=== PATIENT | male | born 1955 | race Caucasian/White ===

== ENCOUNTER → 2017-08-11 | Outpatient (CLI) | payer OTHER ==
[~2017-08-11] MED LIST: ACETAMINOPHEN325 M1 PO; ADULT LOW DOSE81 MG PO; ALLERGY RELIEF10 M3 PO; ANTACID SUSPEN355 M1 PO; ASPIRIN81 M2 PO; BETADINE30 ML; BISAC-EVAC10 MG RECTAL; BOUDREAUXS10 GM; COUMADIN 3 MG TA3 MG PO; FAMOTIDINE 10 M10 MG PO; LOPERAMIDE 2 MG2 M1 PO; METOCLOPRAMIDE 55 MG PO; MIRALAX255 GM PO; MUCINEX TA600 MG/TA2 PO; OXECTA5 MG PO; REMERON15 MG PO; REMERON30 MG PO; SENNA-S TABLET1 EACH PO; SILVADENE20 GM; TRAZODONE 150150 M1 PO; TUSSIN DM CLEA PO; Trazodone PO
== END ==
LOC: HYPER 06:57
DX: I87.2 Venous insufficiency (chronic) (peripheral) (principal); L97.821 Non-pressure chronic ulcer of other part of left lower leg limited to breakdown of skin; G82.20 Paraplegia, unspecified; R60.0 Localized edema; G89.4 Chronic pain syndrome; I48.91 Unspecified atrial fibrillation; I10 Essential (primary) hypertension; F17.200 Nicotine dependence, unspecified, uncomplicated; Z72.89 Other problems related to lifestyle

== ENCOUNTER → 2017-09-01 | Outpatient (CLI) | payer OTHER | LOC: HYPER 07:08 | DX: I87.2 Venous insufficiency (chronic) (peripheral) (principal); L97.822 Non-pressure chronic ulcer of other part of left lower leg with fat layer exposed; R21 Rash and other nonspecific skin eruption; G82.20 Paraplegia, unspecified; R60.0 Localized edema; G89.4 Chronic pain syndrome; I48.91 Unspecified atrial fibrillation; I10 Essential (primary) hypertension; F17.200 Nicotine dependence, unspecified, uncomplicated; Z72.89 Other problems related to lifestyle ==

== ENCOUNTER → 2017-09-15 | Outpatient (CLI) | payer OTHER | LOC: HYPER 07:07 | DX: T81.31XD Disruption of external operation (surgical) wound, not elsewhere classified, subsequent encounter (principal); I87.312 Chronic venous hypertension (idiopathic) with ulcer of left lower extremity; L97.821 Non-pressure chronic ulcer of other part of left lower leg limited to breakdown of skin; G82.20 Paraplegia, unspecified; R60.0 Localized edema; G89.4 Chronic pain syndrome; I48.91 Unspecified atrial fibrillation; F17.200 Nicotine dependence, unspecified, uncomplicated; Y83.8 Other surgical procedures as the cause of abnormal reaction of the patient, or of later complication, without mention of misadventure at the time of the procedure ==

== ENCOUNTER → 2017-10-17 | Outpatient (CLI) | payer OTHER | LOC: HYPER 07:05 | DX: L97.821 Non-pressure chronic ulcer of other part of left lower leg limited to breakdown of skin (principal); I87.2 Venous insufficiency (chronic) (peripheral); G82.20 Paraplegia, unspecified; R60.0 Localized edema; G89.4 Chronic pain syndrome; I48.91 Unspecified atrial fibrillation; I10 Essential (primary) hypertension; L84 Corns and callosities; F17.200 Nicotine dependence, unspecified, uncomplicated ==

== ENCOUNTER → 2018-06-27 | Outpatient (CLI) | payer OTHER | LOC: HYPER 06:55 | DX: L89.613 Pressure ulcer of right heel, stage 3 (principal); G82.20 Paraplegia, unspecified; G89.4 Chronic pain syndrome; G90.09 Other idiopathic peripheral autonomic neuropathy; G47.30 Sleep apnea, unspecified; I87.2 Venous insufficiency (chronic) (peripheral); I12.9 Hypertensive chronic kidney disease with stage 1 through stage 4 chronic kidney disease, or unspecified chronic kidney disease; N18.9 Chronic kidney disease, unspecified; I48.91 Unspecified atrial fibrillation; K21.9 Gastro-esophageal reflux disease without esophagitis; F17.200 Nicotine dependence, unspecified, uncomplicated; Z79.01 Long term (current) use of anticoagulants ==

== ENCOUNTER → 2018-10-16 | Outpatient (CLI) | payer OTHER | LOC: HYPER 07-25 09:15 | DX: I70.233 Atherosclerosis of native arteries of right leg with ulceration of ankle (principal); L97.312 Non-pressure chronic ulcer of right ankle with fat layer exposed; L89.613 Pressure ulcer of right heel, stage 3; S90.414A Abrasion, right lesser toe(s), initial encounter; R60.0 Localized edema; G82.20 Paraplegia, unspecified; G89.4 Chronic pain syndrome; G47.30 Sleep apnea, unspecified; G90.09 Other idiopathic peripheral autonomic neuropathy; I87.2 Venous insufficiency (chronic) (peripheral); I12.9 Hypertensive chronic kidney disease with stage 1 through stage 4 chronic kidney disease, or unspecified chronic kidney disease; N18.9 Chronic kidney disease, unspecified; I48.91 Unspecified atrial fibrillation; K21.9 Gastro-esophageal reflux disease without esophagitis; F17.200 Nicotine dependence, unspecified, uncomplicated; Z79.01 Long term (current) use of anticoagulants; X58.XXXA Exposure to other specified factors, initial encounter; Y93.89 Activity, other specified; Y92.89 Other specified places as the place of occurrence of the external cause; Y99.8 Other external cause status ==

== ENCOUNTER → 2018-11-09 | Outpatient (CLI) | payer OTHER | LOC: HYPER 06:48 | DX: I70.233 Atherosclerosis of native arteries of right leg with ulceration of ankle (principal); L97.312 Non-pressure chronic ulcer of right ankle with fat layer exposed; L89.613 Pressure ulcer of right heel, stage 3; G89.4 Chronic pain syndrome; G82.20 Paraplegia, unspecified; G62.9 Polyneuropathy, unspecified; G47.30 Sleep apnea, unspecified; G90.09 Other idiopathic peripheral autonomic neuropathy; I12.9 Hypertensive chronic kidney disease with stage 1 through stage 4 chronic kidney disease, or unspecified chronic kidney disease; N18.9 Chronic kidney disease, unspecified; I73.89 Other specified peripheral vascular diseases; I87.2 Venous insufficiency (chronic) (peripheral); I48.91 Unspecified atrial fibrillation; I10 Essential (primary) hypertension; R60.0 Localized edema; F17.200 Nicotine dependence, unspecified, uncomplicated; Z79.01 Long term (current) use of anticoagulants; K21.9 Gastro-esophageal reflux disease without esophagitis ==

== ENCOUNTER → 2018-11-23 | Outpatient (CLI) | payer OTHER | LOC: HYPER 06:52 | DX: I70.233 Atherosclerosis of native arteries of right leg with ulceration of ankle (principal); L97.312 Non-pressure chronic ulcer of right ankle with fat layer exposed; L89.610 Pressure ulcer of right heel, unstageable; I12.9 Hypertensive chronic kidney disease with stage 1 through stage 4 chronic kidney disease, or unspecified chronic kidney disease; N18.9 Chronic kidney disease, unspecified; G82.20 Paraplegia, unspecified; I87.2 Venous insufficiency (chronic) (peripheral); G89.4 Chronic pain syndrome; R60.0 Localized edema; G90.09 Other idiopathic peripheral autonomic neuropathy; I48.91 Unspecified atrial fibrillation; G47.30 Sleep apnea, unspecified; F17.200 Nicotine dependence, unspecified, uncomplicated; Z79.01 Long term (current) use of anticoagulants ==

== ENCOUNTER → 2018-12-07 | Outpatient (CLI) | payer OTHER | LOC: HYPER 06:46 | DX: I70.233 Atherosclerosis of native arteries of right leg with ulceration of ankle (principal); L97.312 Non-pressure chronic ulcer of right ankle with fat layer exposed; L89.613 Pressure ulcer of right heel, stage 3; L97.411 Non-pressure chronic ulcer of right heel and midfoot limited to breakdown of skin; I73.89 Other specified peripheral vascular diseases; I12.9 Hypertensive chronic kidney disease with stage 1 through stage 4 chronic kidney disease, or unspecified chronic kidney disease; N18.9 Chronic kidney disease, unspecified; I87.2 Venous insufficiency (chronic) (peripheral); I48.91 Unspecified atrial fibrillation; G82.20 Paraplegia, unspecified; G89.4 Chronic pain syndrome; G90.09 Other idiopathic peripheral autonomic neuropathy; R60.0 Localized edema; G62.9 Polyneuropathy, unspecified; G47.30 Sleep apnea, unspecified; K21.9 Gastro-esophageal reflux disease without esophagitis; F17.200 Nicotine dependence, unspecified, uncomplicated; Z79.01 Long term (current) use of anticoagulants ==

== ENCOUNTER → 2018-12-21 | Outpatient (CLI) | payer OTHER | LOC: HYPER 06:31 | DX: L97.312 Non-pressure chronic ulcer of right ankle with fat layer exposed (principal); L89.613 Pressure ulcer of right heel, stage 3; I70.242 Atherosclerosis of native arteries of left leg with ulceration of calf; L97.221 Non-pressure chronic ulcer of left calf limited to breakdown of skin; I70.233 Atherosclerosis of native arteries of right leg with ulceration of ankle; L97.311 Non-pressure chronic ulcer of right ankle limited to breakdown of skin; S90.414D Abrasion, right lesser toe(s), subsequent encounter; I12.9 Hypertensive chronic kidney disease with stage 1 through stage 4 chronic kidney disease, or unspecified chronic kidney disease; N18.9 Chronic kidney disease, unspecified; I87.2 Venous insufficiency (chronic) (peripheral); I48.91 Unspecified atrial fibrillation; D64.9 Anemia, unspecified; G89.4 Chronic pain syndrome; G90.09 Other idiopathic peripheral autonomic neuropathy; G82.20 Paraplegia, unspecified; G47.30 Sleep apnea, unspecified; R60.0 Localized edema; F17.200 Nicotine dependence, unspecified, uncomplicated; Z79.01 Long term (current) use of anticoagulants; X58.XXXD Exposure to other specified factors, subsequent encounter ==

== ENCOUNTER → 2019-01-11 | Outpatient (CLI) | payer OTHER | LOC: HYPER 06:54 | DX: I70.233 Atherosclerosis of native arteries of right leg with ulceration of ankle (principal); L97.312 Non-pressure chronic ulcer of right ankle with fat layer exposed; I70.242 Atherosclerosis of native arteries of left leg with ulceration of calf; L97.221 Non-pressure chronic ulcer of left calf limited to breakdown of skin; L89.613 Pressure ulcer of right heel, stage 3; I73.89 Other specified peripheral vascular diseases; I87.2 Venous insufficiency (chronic) (peripheral); I12.9 Hypertensive chronic kidney disease with stage 1 through stage 4 chronic kidney disease, or unspecified chronic kidney disease; N18.9 Chronic kidney disease, unspecified; I48.91 Unspecified atrial fibrillation; G82.20 Paraplegia, unspecified; G62.9 Polyneuropathy, unspecified; G47.30 Sleep apnea, unspecified; G89.4 Chronic pain syndrome; G90.09 Other idiopathic peripheral autonomic neuropathy; R60.0 Localized edema; K21.9 Gastro-esophageal reflux disease without esophagitis; F17.200 Nicotine dependence, unspecified, uncomplicated; Z79.01 Long term (current) use of anticoagulants ==

== ENCOUNTER → 2019-02-01 | Outpatient (CLI) | payer OTHER | LOC: HYPER 06:56 | DX: I70.233 Atherosclerosis of native arteries of right leg with ulceration of ankle (principal); L97.312 Non-pressure chronic ulcer of right ankle with fat layer exposed; I70.242 Atherosclerosis of native arteries of left leg with ulceration of calf; L97.221 Non-pressure chronic ulcer of left calf limited to breakdown of skin; L89.613 Pressure ulcer of right heel, stage 3; G82.20 Paraplegia, unspecified; G90.09 Other idiopathic peripheral autonomic neuropathy; G89.4 Chronic pain syndrome; G47.30 Sleep apnea, unspecified; I87.2 Venous insufficiency (chronic) (peripheral); I12.9 Hypertensive chronic kidney disease with stage 1 through stage 4 chronic kidney disease, or unspecified chronic kidney disease; N18.9 Chronic kidney disease, unspecified; I48.91 Unspecified atrial fibrillation; R60.0 Localized edema; K21.9 Gastro-esophageal reflux disease without esophagitis; F17.200 Nicotine dependence, unspecified, uncomplicated; Z79.01 Long term (current) use of anticoagulants ==

== ENCOUNTER → 2019-02-22 | Outpatient (CLI) | payer OTHER | LOC: HYPER 06:45 | DX: L89.613 Pressure ulcer of right heel, stage 3 (principal); I70.233 Atherosclerosis of native arteries of right leg with ulceration of ankle; L97.312 Non-pressure chronic ulcer of right ankle with fat layer exposed; I70.232 Atherosclerosis of native arteries of right leg with ulceration of calf; L97.211 Non-pressure chronic ulcer of right calf limited to breakdown of skin; I73.89 Other specified peripheral vascular diseases; I12.9 Hypertensive chronic kidney disease with stage 1 through stage 4 chronic kidney disease, or unspecified chronic kidney disease; N18.9 Chronic kidney disease, unspecified; I48.91 Unspecified atrial fibrillation; I87.2 Venous insufficiency (chronic) (peripheral); G82.20 Paraplegia, unspecified; G89.4 Chronic pain syndrome; G90.09 Other idiopathic peripheral autonomic neuropathy; G47.30 Sleep apnea, unspecified; R60.0 Localized edema; F17.200 Nicotine dependence, unspecified, uncomplicated; Z79.01 Long term (current) use of anticoagulants ==

== ENCOUNTER → 2019-03-01 | Outpatient (CLI) | payer OTHER | LOC: MRI 10:09 | DX: L03.115 Cellulitis of right lower limb (principal); M77.51 Other enthesopathy of right foot and ankle; R60.0 Localized edema ==

== ENCOUNTER → 2019-03-12 | Outpatient (CLI) | payer OTHER | LOC: HYPER 07:44 | DX: I70.233 Atherosclerosis of native arteries of right leg with ulceration of ankle (principal); L89.613 Pressure ulcer of right heel, stage 3; L97.312 Non-pressure chronic ulcer of right ankle with fat layer exposed; I70.242 Atherosclerosis of native arteries of left leg with ulceration of calf; L97.222 Non-pressure chronic ulcer of left calf with fat layer exposed; S90.414A Abrasion, right lesser toe(s), initial encounter; G89.4 Chronic pain syndrome; G47.30 Sleep apnea, unspecified; G82.20 Paraplegia, unspecified; I87.2 Venous insufficiency (chronic) (peripheral); I48.91 Unspecified atrial fibrillation; R60.0 Localized edema; I12.9 Hypertensive chronic kidney disease with stage 1 through stage 4 chronic kidney disease, or unspecified chronic kidney disease; N18.9 Chronic kidney disease, unspecified; G90.09 Other idiopathic peripheral autonomic neuropathy; K21.9 Gastro-esophageal reflux disease without esophagitis; F17.200 Nicotine dependence, unspecified, uncomplicated; Z79.01 Long term (current) use of anticoagulants; X58.XXXA Exposure to other specified factors, initial encounter; Y93.89 Activity, other specified; Y92.89 Other specified places as the place of occurrence of the external cause; Y99.8 Other external cause status ==

== ENCOUNTER → 2019-03-29 | Outpatient (CLI) | payer OTHER | LOC: HYPER 11:00 | DX: I70.242 Atherosclerosis of native arteries of left leg with ulceration of calf (principal); L97.222 Non-pressure chronic ulcer of left calf with fat layer exposed; I70.233 Atherosclerosis of native arteries of right leg with ulceration of ankle; L97.312 Non-pressure chronic ulcer of right ankle with fat layer exposed; L89.613 Pressure ulcer of right heel, stage 3; S90.414D Abrasion, right lesser toe(s), subsequent encounter; I87.2 Venous insufficiency (chronic) (peripheral); I12.9 Hypertensive chronic kidney disease with stage 1 through stage 4 chronic kidney disease, or unspecified chronic kidney disease; N18.9 Chronic kidney disease, unspecified; I48.91 Unspecified atrial fibrillation; G89.4 Chronic pain syndrome; G82.20 Paraplegia, unspecified; G90.09 Other idiopathic peripheral autonomic neuropathy; G47.30 Sleep apnea, unspecified; R60.0 Localized edema; F17.200 Nicotine dependence, unspecified, uncomplicated; Z79.01 Long term (current) use of anticoagulants; X58.XXXD Exposure to other specified factors, subsequent encounter ==

== ENCOUNTER → 2019-04-18 | Outpatient (CLI) | payer OTHER | LOC: HYPER 12:15 | DX: L89.613 Pressure ulcer of right heel, stage 3 (principal); L97.312 Non-pressure chronic ulcer of right ankle with fat layer exposed; I70.242 Atherosclerosis of native arteries of left leg with ulceration of calf; L97.221 Non-pressure chronic ulcer of left calf limited to breakdown of skin; S90.414D Abrasion, right lesser toe(s), subsequent encounter; G82.20 Paraplegia, unspecified; I12.9 Hypertensive chronic kidney disease with stage 1 through stage 4 chronic kidney disease, or unspecified chronic kidney disease; I87.2 Venous insufficiency (chronic) (peripheral); N18.9 Chronic kidney disease, unspecified; I48.91 Unspecified atrial fibrillation; G62.9 Polyneuropathy, unspecified; G47.30 Sleep apnea, unspecified; G89.4 Chronic pain syndrome; R60.0 Localized edema; F17.200 Nicotine dependence, unspecified, uncomplicated; Z79.01 Long term (current) use of anticoagulants; X58.XXXD Exposure to other specified factors, subsequent encounter ==

== ENCOUNTER → 2019-05-17 | Outpatient (CLI) | payer OTHER | LOC: HYPER 09:08 | DX: L89.613 Pressure ulcer of right heel, stage 3 (principal); I70.242 Atherosclerosis of native arteries of left leg with ulceration of calf; L97.222 Non-pressure chronic ulcer of left calf with fat layer exposed; L97.312 Non-pressure chronic ulcer of right ankle with fat layer exposed; S90.414D Abrasion, right lesser toe(s), subsequent encounter; I73.89 Other specified peripheral vascular diseases; I12.9 Hypertensive chronic kidney disease with stage 1 through stage 4 chronic kidney disease, or unspecified chronic kidney disease; N18.9 Chronic kidney disease, unspecified; I87.2 Venous insufficiency (chronic) (peripheral); L84 Corns and callosities; G89.4 Chronic pain syndrome; G90.09 Other idiopathic peripheral autonomic neuropathy; G82.20 Paraplegia, unspecified; I48.91 Unspecified atrial fibrillation; G47.30 Sleep apnea, unspecified; R21 Rash and other nonspecific skin eruption; R60.0 Localized edema; F17.200 Nicotine dependence, unspecified, uncomplicated; Z79.01 Long term (current) use of anticoagulants; X58.XXXD Exposure to other specified factors, subsequent encounter ==

== ENCOUNTER → 2019-06-07 | Outpatient (CLI) | payer OTHER | LOC: HYPER 13:09 | DX: I70.242 Atherosclerosis of native arteries of left leg with ulceration of calf (principal); L97.222 Non-pressure chronic ulcer of left calf with fat layer exposed; L97.312 Non-pressure chronic ulcer of right ankle with fat layer exposed; L89.613 Pressure ulcer of right heel, stage 3; S90.414D Abrasion, right lesser toe(s), subsequent encounter; I12.9 Hypertensive chronic kidney disease with stage 1 through stage 4 chronic kidney disease, or unspecified chronic kidney disease; N18.9 Chronic kidney disease, unspecified; L84 Corns and callosities; I48.91 Unspecified atrial fibrillation; I73.89 Other specified peripheral vascular diseases; I87.2 Venous insufficiency (chronic) (peripheral); G89.4 Chronic pain syndrome; G82.20 Paraplegia, unspecified; R60.0 Localized edema; G90.09 Other idiopathic peripheral autonomic neuropathy; G47.30 Sleep apnea, unspecified; G62.9 Polyneuropathy, unspecified; F17.200 Nicotine dependence, unspecified, uncomplicated; Z79.01 Long term (current) use of anticoagulants; X58.XXXD Exposure to other specified factors, subsequent encounter ==

== ENCOUNTER → 2019-07-19 | Outpatient (CLI) | payer OTHER | LOC: HYPER 12:16 | DX: L89.613 Pressure ulcer of right heel, stage 3 (principal); L97.312 Non-pressure chronic ulcer of right ankle with fat layer exposed; I70.242 Atherosclerosis of native arteries of left leg with ulceration of calf; L97.221 Non-pressure chronic ulcer of left calf limited to breakdown of skin; I70.248 Atherosclerosis of native arteries of left leg with ulceration of other part of lower leg; L97.822 Non-pressure chronic ulcer of other part of left lower leg with fat layer exposed; S80.821A Blister (nonthermal), right lower leg, initial encounter; S90.414D Abrasion, right lesser toe(s), subsequent encounter; I87.2 Venous insufficiency (chronic) (peripheral); G83.9 Paralytic syndrome, unspecified; G89.4 Chronic pain syndrome; G90.09 Other idiopathic peripheral autonomic neuropathy; I12.9 Hypertensive chronic kidney disease with stage 1 through stage 4 chronic kidney disease, or unspecified chronic kidney disease; N18.9 Chronic kidney disease, unspecified; I48.91 Unspecified atrial fibrillation; G47.30 Sleep apnea, unspecified; F17.290 Nicotine dependence, other tobacco product, uncomplicated; Z79.01 Long term (current) use of anticoagulants; X58.XXXA Exposure to other specified factors, initial encounter; Y93.89 Activity, other specified; Y92.89 Other specified places as the place of occurrence of the external cause; Y99.8 Other external cause status ==

== ENCOUNTER → 2019-07-26 | Outpatient (CLI) | payer OTHER | LOC: SJCVCIMAG 07:56 | DX: I37.1 Nonrheumatic pulmonary valve insufficiency (principal); I73.9 Peripheral vascular disease, unspecified; I10 Essential (primary) hypertension; I48.91 Unspecified atrial fibrillation; G82.20 Paraplegia, unspecified; E78.00 Pure hypercholesterolemia, unspecified; Z82.49 Family history of ischemic heart disease and other diseases of the circulatory system; F17.210 Nicotine dependence, cigarettes, uncomplicated; Z79.899 Other long term (current) drug therapy; Z86.74 Personal history of sudden cardiac arrest ==

== ENCOUNTER → 2019-08-09 | Outpatient (CLI) | payer OTHER | LOC: HYPER 13:18 | DX: L89.613 Pressure ulcer of right heel, stage 3 (principal); I70.242 Atherosclerosis of native arteries of left leg with ulceration of calf; L97.221 Non-pressure chronic ulcer of left calf limited to breakdown of skin; L89.620 Pressure ulcer of left heel, unstageable; L97.312 Non-pressure chronic ulcer of right ankle with fat layer exposed; S90.414D Abrasion, right lesser toe(s), subsequent encounter; I87.2 Venous insufficiency (chronic) (peripheral); R60.0 Localized edema; G82.20 Paraplegia, unspecified; G89.4 Chronic pain syndrome; G90.09 Other idiopathic peripheral autonomic neuropathy; I12.9 Hypertensive chronic kidney disease with stage 1 through stage 4 chronic kidney disease, or unspecified chronic kidney disease; N18.9 Chronic kidney disease, unspecified; I48.91 Unspecified atrial fibrillation; G47.30 Sleep apnea, unspecified; F17.290 Nicotine dependence, other tobacco product, uncomplicated; Z79.01 Long term (current) use of anticoagulants; X58.XXXD Exposure to other specified factors, subsequent encounter ==

== ENCOUNTER → 2019-09-27 | Outpatient (CLI) | payer OTHER | LOC: HYPER 13:13 | DX: I70.242 Atherosclerosis of native arteries of left leg with ulceration of calf (principal); L97.221 Non-pressure chronic ulcer of left calf limited to breakdown of skin; L89.613 Pressure ulcer of right heel, stage 3; L97.822 Non-pressure chronic ulcer of other part of left lower leg with fat layer exposed; L97.812 Non-pressure chronic ulcer of other part of right lower leg with fat layer exposed; S90.414D Abrasion, right lesser toe(s), subsequent encounter; S80.821D Blister (nonthermal), right lower leg, subsequent encounter; L84 Corns and callosities; I12.9 Hypertensive chronic kidney disease with stage 1 through stage 4 chronic kidney disease, or unspecified chronic kidney disease; N18.9 Chronic kidney disease, unspecified; I87.2 Venous insufficiency (chronic) (peripheral); I73.89 Other specified peripheral vascular diseases; I48.91 Unspecified atrial fibrillation; G82.20 Paraplegia, unspecified; G89.4 Chronic pain syndrome; G47.30 Sleep apnea, unspecified; G90.09 Other idiopathic peripheral autonomic neuropathy; R60.0 Localized edema; K21.9 Gastro-esophageal reflux disease without esophagitis; F17.200 Nicotine dependence, unspecified, uncomplicated; Z79.01 Long term (current) use of anticoagulants; X58.XXXD Exposure to other specified factors, subsequent encounter ==

== ENCOUNTER → 2019-11-29 | Outpatient (CLI) | payer OTHER | LOC: HYPER 13:29 | PROVIDERS: ATTEND Emergency Medicine | DX: L89.623 Pressure ulcer of left heel, stage 3 (principal); L89.613 Pressure ulcer of right heel, stage 3; I70.242 Atherosclerosis of native arteries of left leg with ulceration of calf; L97.221 Non-pressure chronic ulcer of left calf limited to breakdown of skin; I70.248 Atherosclerosis of native arteries of left leg with ulceration of other part of lower leg; L97.822 Non-pressure chronic ulcer of other part of left lower leg with fat layer exposed; L97.812 Non-pressure chronic ulcer of other part of right lower leg with fat layer exposed; S80.821D Blister (nonthermal), right lower leg, subsequent encounter; S90.414D Abrasion, right lesser toe(s), subsequent encounter; I87.2 Venous insufficiency (chronic) (peripheral); G82.20 Paraplegia, unspecified; G89.4 Chronic pain syndrome; G90.09 Other idiopathic peripheral autonomic neuropathy; I12.9 Hypertensive chronic kidney disease with stage 1 through stage 4 chronic kidney disease, or unspecified chronic kidney disease; N18.9 Chronic kidney disease, unspecified; I48.91 Unspecified atrial fibrillation; G47.30 Sleep apnea, unspecified; F17.290 Nicotine dependence, other tobacco product, uncomplicated; X58.XXXD Exposure to other specified factors, subsequent encounter ==

== ENCOUNTER → 2020-01-03 | Outpatient (CLI) | payer OTHER | LOC: HYPER 11:30 | PROVIDERS: ATTEND Emergency Medicine | DX: L89.613 Pressure ulcer of right heel, stage 3 (principal); L89.623 Pressure ulcer of left heel, stage 3; L89.512 Pressure ulcer of right ankle, stage 2; L97.822 Non-pressure chronic ulcer of other part of left lower leg with fat layer exposed; L97.812 Non-pressure chronic ulcer of other part of right lower leg with fat layer exposed; L84 Corns and callosities; E66.01 Morbid (severe) obesity due to excess calories; R60.0 Localized edema; G82.20 Paraplegia, unspecified; G89.4 Chronic pain syndrome; G47.30 Sleep apnea, unspecified; G90.09 Other idiopathic peripheral autonomic neuropathy; I87.2 Venous insufficiency (chronic) (peripheral); I73.89 Other specified peripheral vascular diseases; I12.9 Hypertensive chronic kidney disease with stage 1 through stage 4 chronic kidney disease, or unspecified chronic kidney disease; N18.9 Chronic kidney disease, unspecified; I48.91 Unspecified atrial fibrillation; K21.9 Gastro-esophageal reflux disease without esophagitis; F17.200 Nicotine dependence, unspecified, uncomplicated; Z79.01 Long term (current) use of anticoagulants; Z68.31 Body mass index [BMI] 31.0-31.9, adult ==

== ENCOUNTER 2020-01-17 15:01 | Emergency (ER) | payer OTHER ==
[~2020-01-17] VITALS: Ht 172.7 cm; Wt 95.3 kg
[~2020-01-17 15:01] MED LIST changes: -COZAAR 25 MG TA25 M1 PO; -LIPITOR 20 MG T20 M1 PO; -METOPROLOL SUC200 MG PO; -PLAVIX 75 MG TA75 MG PO; -TORSEMIDE20 MG PO
[2020-01-17] MEDS ORDERED: METOPROLOL SUC200 MG PO (15:19)
[2020-01-17] MEDS ORDERED: LIPITOR 20 MG T20 M1 PO (15:20)
[2020-01-17] MEDS ORDERED: COZAAR 25 MG TA25 M1 PO (15:20)
[2020-01-17] MEDS ORDERED: PLAVIX 75 MG TA75 MG PO (15:20)
[2020-01-17] MEDS ORDERED: TORSEMIDE20 MG PO (15:20)
[2020-01-17 15:45] LABS: CALCIUM 9.2 mg/dL (8.5-10.1); CREATININE 1.4 mg/dL (0.7-1.3); POTASSIUM 4.4 mmol/L (3.5-5.1)
[2020-01-17 16:29] VITALS: BP 145/88
== END 2020-01-17 16:29 | disposition home or self-care (01) ==
LOC: ER 15:01
PROVIDERS: Emergency Medicine
DX: R50.9 Fever, unspecified (principal); Z20.828 Contact with and (suspected) exposure to other viral communicable diseases; I10 Essential (primary) hypertension; Z79.82 Long term (current) use of aspirin; Z79.899 Other long term (current) drug therapy; Z87.891 Personal history of nicotine dependence

== ENCOUNTER → 2020-01-17 | Outpatient (CLI) | payer OTHER ==
[~2020-01-17] MED LIST changes: +COZAAR 25 MG TA25 M1 PO; +LIPITOR 20 MG T20 M1 PO; +METOPROLOL SUC200 MG PO; +PLAVIX 75 MG TA75 MG PO; +TORSEMIDE20 MG PO
== END ==
LOC: HYPER 12:57
PROVIDERS: ATTEND Emergency Medicine
DX: L89.613 Pressure ulcer of right heel, stage 3 (principal); L89.623 Pressure ulcer of left heel, stage 3; L89.512 Pressure ulcer of right ankle, stage 2; L97.812 Non-pressure chronic ulcer of other part of right lower leg with fat layer exposed; L97.822 Non-pressure chronic ulcer of other part of left lower leg with fat layer exposed; L84 Corns and callosities; R60.0 Localized edema; G62.9 Polyneuropathy, unspecified; G47.30 Sleep apnea, unspecified; G82.20 Paraplegia, unspecified; G89.4 Chronic pain syndrome; G90.09 Other idiopathic peripheral autonomic neuropathy; I12.9 Hypertensive chronic kidney disease with stage 1 through stage 4 chronic kidney disease, or unspecified chronic kidney disease; N18.9 Chronic kidney disease, unspecified; I87.2 Venous insufficiency (chronic) (peripheral); I73.89 Other specified peripheral vascular diseases; I48.91 Unspecified atrial fibrillation; E66.01 Morbid (severe) obesity due to excess calories; K21.9 Gastro-esophageal reflux disease without esophagitis; F17.200 Nicotine dependence, unspecified, uncomplicated; Z79.01 Long term (current) use of anticoagulants; Z68.31 Body mass index [BMI] 31.0-31.9, adult

== ENCOUNTER → 2020-01-31 | Outpatient (CLI) | payer OTHER ==
[~2020-01-31] MED LIST changes: +COZAAR 25 MG TA25 M1 PO; +LIPITOR 20 MG T20 M1 PO; +METOPROLOL SUC200 MG PO; +PLAVIX 75 MG TA75 MG PO; +TORSEMIDE20 MG PO
== END ==
LOC: HYPER 09:38
PROVIDERS: ATTEND Emergency Medicine
DX: L89.613 Pressure ulcer of right heel, stage 3 (principal); L89.623 Pressure ulcer of left heel, stage 3; L89.512 Pressure ulcer of right ankle, stage 2; L97.812 Non-pressure chronic ulcer of other part of right lower leg with fat layer exposed; L97.822 Non-pressure chronic ulcer of other part of left lower leg with fat layer exposed; S80.821D Blister (nonthermal), right lower leg, subsequent encounter; I87.2 Venous insufficiency (chronic) (peripheral); I73.89 Other specified peripheral vascular diseases; G82.20 Paraplegia, unspecified; R60.0 Localized edema; G90.09 Other idiopathic peripheral autonomic neuropathy; I48.91 Unspecified atrial fibrillation; G89.4 Chronic pain syndrome; G47.30 Sleep apnea, unspecified; F17.290 Nicotine dependence, other tobacco product, uncomplicated; X58.XXXD Exposure to other specified factors, subsequent encounter

== ENCOUNTER → 2020-01-31 | Outpatient (CLI) | payer OTHER | LOC: SJCVCIMAG 09:07 | PROVIDERS: ATTEND Internal Medicine Cardiovascular Disease | DX: I44.0 Atrioventricular block, first degree (principal); R00.1 Bradycardia, unspecified; I87.2 Venous insufficiency (chronic) (peripheral); I73.9 Peripheral vascular disease, unspecified; I48.91 Unspecified atrial fibrillation; G82.20 Paraplegia, unspecified; I10 Essential (primary) hypertension; I71.3 Abdominal aortic aneurysm, ruptured; E78.00 Pure hypercholesterolemia, unspecified; F17.200 Nicotine dependence, unspecified, uncomplicated; Z79.899 Other long term (current) drug therapy ==

== ENCOUNTER → 2020-02-28 | Outpatient (CLI) | payer OTHER | LOC: HYPER 13:06 | PROVIDERS: ATTEND Emergency Medicine | DX: L89.613 Pressure ulcer of right heel, stage 3 (principal); L97.822 Non-pressure chronic ulcer of other part of left lower leg with fat layer exposed; L97.812 Non-pressure chronic ulcer of other part of right lower leg with fat layer exposed; L89.512 Pressure ulcer of right ankle, stage 2; I87.2 Venous insufficiency (chronic) (peripheral); I73.89 Other specified peripheral vascular diseases; G90.09 Other idiopathic peripheral autonomic neuropathy; G82.20 Paraplegia, unspecified; G89.4 Chronic pain syndrome; R60.0 Localized edema; I12.9 Hypertensive chronic kidney disease with stage 1 through stage 4 chronic kidney disease, or unspecified chronic kidney disease; N18.9 Chronic kidney disease, unspecified; L84 Corns and callosities; G83.9 Paralytic syndrome, unspecified; I48.91 Unspecified atrial fibrillation; G47.30 Sleep apnea, unspecified; F17.290 Nicotine dependence, other tobacco product, uncomplicated; Z79.01 Long term (current) use of anticoagulants ==

== ENCOUNTER → 2020-03-20 | Outpatient (CLI) | payer OTHER | LOC: HYPER 13:21 | PROVIDERS: ATTEND Emergency Medicine | DX: L89.613 Pressure ulcer of right heel, stage 3 (principal); L89.512 Pressure ulcer of right ankle, stage 2; L97.812 Non-pressure chronic ulcer of other part of right lower leg with fat layer exposed; L97.822 Non-pressure chronic ulcer of other part of left lower leg with fat layer exposed; L89.623 Pressure ulcer of left heel, stage 3; L84 Corns and callosities; G89.4 Chronic pain syndrome; G82.20 Paraplegia, unspecified; G62.9 Polyneuropathy, unspecified; G47.30 Sleep apnea, unspecified; I87.2 Venous insufficiency (chronic) (peripheral); I12.9 Hypertensive chronic kidney disease with stage 1 through stage 4 chronic kidney disease, or unspecified chronic kidney disease; N18.9 Chronic kidney disease, unspecified; I73.89 Other specified peripheral vascular diseases; I48.91 Unspecified atrial fibrillation; R60.0 Localized edema; G90.09 Other idiopathic peripheral autonomic neuropathy; E66.01 Morbid (severe) obesity due to excess calories; K21.9 Gastro-esophageal reflux disease without esophagitis; F17.200 Nicotine dependence, unspecified, uncomplicated; Z79.01 Long term (current) use of anticoagulants; Z68.31 Body mass index [BMI] 31.0-31.9, adult ==

== ENCOUNTER → 2020-04-08 | Outpatient (CLI) | payer OTHER | LOC: HYPER 13:29 | PROVIDERS: ATTEND Emergency Medicine | DX: L89.512 Pressure ulcer of right ankle, stage 2 (principal); L89.613 Pressure ulcer of right heel, stage 3; L89.623 Pressure ulcer of left heel, stage 3; L89.523 Pressure ulcer of left ankle, stage 3; L89.893 Pressure ulcer of other site, stage 3; L97.822 Non-pressure chronic ulcer of other part of left lower leg with fat layer exposed; L97.812 Non-pressure chronic ulcer of other part of right lower leg with fat layer exposed; I87.2 Venous insufficiency (chronic) (peripheral); I73.89 Other specified peripheral vascular diseases; G82.20 Paraplegia, unspecified; R60.0 Localized edema; G90.09 Other idiopathic peripheral autonomic neuropathy; G83.9 Paralytic syndrome, unspecified; G89.4 Chronic pain syndrome; I12.9 Hypertensive chronic kidney disease with stage 1 through stage 4 chronic kidney disease, or unspecified chronic kidney disease; N18.9 Chronic kidney disease, unspecified; I48.91 Unspecified atrial fibrillation; G47.30 Sleep apnea, unspecified; F17.290 Nicotine dependence, other tobacco product, uncomplicated; Z79.01 Long term (current) use of anticoagulants ==

== ENCOUNTER → 2020-04-24 | Outpatient (CLI) | payer OTHER | LOC: HYPER 14:37 | PROVIDERS: ATTEND Emergency Medicine | DX: I70.248 Atherosclerosis of native arteries of left leg with ulceration of other part of lower leg (principal); L97.822 Non-pressure chronic ulcer of other part of left lower leg with fat layer exposed; I70.238 Atherosclerosis of native arteries of right leg with ulceration of other part of lower leg; L97.812 Non-pressure chronic ulcer of other part of right lower leg with fat layer exposed; I70.234 Atherosclerosis of native arteries of right leg with ulceration of heel and midfoot; L89.613 Pressure ulcer of right heel, stage 3; L97.411 Non-pressure chronic ulcer of right heel and midfoot limited to breakdown of skin; I70.233 Atherosclerosis of native arteries of right leg with ulceration of ankle; L89.514 Pressure ulcer of right ankle, stage 4; L97.315 Non-pressure chronic ulcer of right ankle with muscle involvement without evidence of necrosis; L89.893 Pressure ulcer of other site, stage 3; I70.243 Atherosclerosis of native arteries of left leg with ulceration of ankle; L89.523 Pressure ulcer of left ankle, stage 3; L97.321 Non-pressure chronic ulcer of left ankle limited to breakdown of skin; I70.245 Atherosclerosis of native arteries of left leg with ulceration of other part of foot; L97.522 Non-pressure chronic ulcer of other part of left foot with fat layer exposed; I70.235 Atherosclerosis of native arteries of right leg with ulceration of other part of foot; L97.511 Non-pressure chronic ulcer of other part of right foot limited to breakdown of skin; I87.2 Venous insufficiency (chronic) (peripheral); R21 Rash and other nonspecific skin eruption; G89.4 Chronic pain syndrome; I12.9 Hypertensive chronic kidney disease with stage 1 through stage 4 chronic kidney disease, or unspecified chronic kidney disease; N18.9 Chronic kidney disease, unspecified; I48.91 Unspecified atrial fibrillation; G82.20 Paraplegia, unspecified; G90.09 Other idiopathic peripheral autonomic neuropathy; R60.0 Localized edema; G47.30 Sleep apnea, unspecified; F17.290 Nicotine dependence, other tobacco product, uncomplicated; Z79.01 Long term (current) use of anticoagulants ==

== ENCOUNTER → 2020-04-24 | Outpatient (CLI) | payer OTHER | LOC: SJCVCIMAG 13:01 | PROVIDERS: ATTEND Emergency Medicine | DX: I70.203 Unspecified atherosclerosis of native arteries of extremities, bilateral legs (principal); L97.909 Non-pressure chronic ulcer of unspecified part of unspecified lower leg with unspecified severity; I77.9 Disorder of arteries and arterioles, unspecified; I48.91 Unspecified atrial fibrillation; I10 Essential (primary) hypertension; G82.20 Paraplegia, unspecified; I71.02 Dissection of abdominal aorta; E78.00 Pure hypercholesterolemia, unspecified; F17.200 Nicotine dependence, unspecified, uncomplicated; Z95.828 Presence of other vascular implants and grafts; Z79.899 Other long term (current) drug therapy ==

== ENCOUNTER 2020-04-29 13:03 | Inpatient (IN) | payer OTHER ==
[~2020-04-29] VITALS: Ht 172.7 cm; Wt 95.3 kg
--- NOTE | ~2020-04-29 | HC ---
[facility] [place] [address] CONSULTATION Name: PIPE NAIR Room #: 457-P ADM IN M.R.#: [id number] Admission: 04/29/20 Attend Phys: Tanner Simpson MD Discharge: Date of : 51 Report #: [id number] THIS REPORT FOR: cc: Roc Andrews MD, Christopher B. MD Al-[place]ster,Rusty Apple MD ~ REASON FOR CONSULTATION: Elevated creatinine. HISTORY OF PRESENT ILLNESS: This is 64-year-old with extensive past medical history including peripheral vascular disease. He is suffering from bilateral lower extremity wound that had not been healing very well. He was admitted because of nonhealing wound for IV antibiotic and potential angiogram. His creatinine on arrival yesterday was 2.6. He has suprapubic catheter. He had an extensive past medical history related to aortic dissection in 2012, complicated by cardiac arrest, requirement for dialysis, compartment syndrome with bilateral lower leg fasciotomies. He had been in at the Intensive Care Unit for a long period of time and had required tracheostomy, PEG tube; however, continued to improve from that prospective and was left with residual paralysis. He is being evaluated because of his nonhealing wounds. Creatinine on arrival was 2.6. Creatinine today is 1.5. I was asked to evaluate his kidney function. PAST MEDICAL HISTORY: Extensive and includes the followin. Acute kidney injury requiring dialysis during the AAA dissection surgery. 2. Bilateral compartment syndrome. 3. Post-cardiac arrest. 4. Post-aortic dissections. 5. Hypertension. 6. Hyperlipidemia. 7. Post-PEG tube. 8. Post-suprapubic catheter. 9. Post-tracheostomy. MEDICATIONS: 1. Losartan. 2. Atorvastatin. 3. Metoprolol. 4. Torsemide. ALLERGIES: None. SOCIAL HISTORY: No drug or alcohol abuse. REVIEW OF SYSTEMS: GENERAL: No fever or chills. CARDIOVASCULAR: No chest pain or palpitation. [facility] [address] [place] [address] CONSULTATION Name: PIPE NAIR Room #: 457-P [facility].#: [id number] Admission: 04/29/20 Attend Phys: Tanner Simpson MD Discharge: Date of : 51 Report #: [id number] PULMONARY: No cough or hemoptysis. GASTROINTESTINAL: No nausea or vomiting. GENITOURINARY: Has suprapubic catheter. MUSCULOSKELETAL: He is paraplegic. FAMILY HISTORY: Significant for hypertension. PHYSICAL EXAMINATION: VITAL SIGNS: Temperature 36.5, pulse rate is 63, respiratory rate is 18, blood pressure is 124/41. HEAD AND NECK: No jugular venous distention, no bruit, no thyromegaly. CHEST: Clear to auscultation bilaterally. CARDIOVASCULAR: No rub detected. ABDOMEN: Soft, nontender. He has suprapubic catheter. LOWER EXTREMITIES: Dressing applied to both lower extremities. LABORATORY DATA: Reviewed. Sodium is 140, potassium is 4.2, BUN is 24, creatinine is 1.5. IMPRESSION AND PLAN: 1. Acute kidney injury due to hypotension due to angiotensin receptor briseida and lacosamide. 2. His creatinine seems to be improving and is down to 1.5. 3. Continue to hold ARB. Continue to hold diuretics. 4. Risk of contrast nephropathy is very high given his previous history of acute kidney injury requiring dialysis. This was discussed with the patient. He needs IV hydration. He needs very minimal contrast just to evaluate his lower extremities. I would strongly recommend not going beyond the lower extremity vessels and not doing any renal arteries or aortogram. By: [id number] Rusty Forbes MD /nt
[2020-04-29 13:04] VITALS: BP 106/54
[2020-04-29 14:15] LABS: ABSOLUTE NEUTROPHILS 8.3 thou/uL (1.4-8.2); BASOPHILS 0.9 % (0.0-2.0); HEMATOCRIT 38.8 % (42.0-52.0); HEMOGLOBIN 12.7 gm/dL (14.0-18.0); LYMPHOCYTES 17.4 % (24.0-44.0); MCH 32.2 pg (26.0-34.0); MCHC 32.7 g/dL (28.0-37.0); MCV 98.4 fL (80.0-100.0); MONOCYTES 7.7 % (1.0-8.0); PLATELET COUNT 339 thou/uL (150-400); RBC 3.94 mil/uL (4.50-6.00); RDW 14.3 % (10.5-14.5); WBC 11.4 thou/uL (4.0-11.0)
[2020-04-29 14:23] LABS: CALCIUM 9.5 mg/dL (8.5-10.1); CREATININE 2.6 mg/dL (0.7-1.3); POTASSIUM 4.2 mmol/L (3.5-5.1)
[2020-04-29 14:41] LABS: ALBUMIN 3.9 g/dL (3.4-5.0); TOTAL BILIRUBIN 0.4 mg/dL (0.2-1.0); TOTAL PROTEIN 8.4 g/dL (6.4-8.2)
[2020-04-29] MEDS ORDERED: TOPROL XL100 MG PO (16:18)
[2020-04-29] MEDS ORDERED: TORSEMIDE20 MG PO (16:19)
[2020-04-29 22:01] LABS: URINE BILIRUBIN NEGATIVE (Negative); URINE BLOOD 3+ (Negative); URINE CLARITY CLEAR; URINE COLOR YELLOW; URINE GLUCOSE-RANDOM* NEGATIVE (Negative); URINE KETONES NEGATIVE (Negative); URINE NITRITE-REFLEX NEGATIVE (Negative); URINE PROTEIN (DIPSTICK) NEGATIVE (Negative); URINE UROBILINOGEN 0.2 E.U./dl (0.2-1.0)
[2020-04-29 22:09] LABS: URINE LEUKOCYTES-REFLEX 2+ (Negative)
[2020-04-29 22:15] LABS: BACTERIA-REFLEX 1-9 Few /HPF (None Seen); CASTS None Seen /LPF (None Seen); CRYSTALS None Seen /LPF (None Seen); MUCUS 0-3 Light strn/LPF (None Seen); SQUAMOUS 0-3 Few /LPF (0-3); URINE RBC 3-10 Few /HPF (0-2); URINE WBC-REFLEX 0-5 Rare /HPF (0-5)
[2020-04-29 22:45] VITALS: BP 106/51
--- NOTE | 2020-04-29 22:46 | NUR ---
HANDOFF SENT TO 4W
[2020-04-29 23:27] VITALS: BP 106/51
[2020-04-29 23:35] VITALS: BP 124/41
--- NOTE | 2020-04-30 03:07 | NUR ---
PT ADMOITTED TO THE UNIT AT 2330 WITH COMPLAIN OF MULTIPLE WOUNDS LEFT LEGS.PT IS A/O X4.PT IS PARAPLEGIC AND USES WHEELCHAIR AT HOME.PT HAS A SUPRAPUBIC.PT IS A FULL CODE.PT C/O PAIN AND PAIN MANAGED WITH FENTANYL.PT ABLE TO MOVE SELF IN BED .WOUND DRESSING DONE AT ER AND PT WANTED PICS TAKEN WHEN DRESSING IS DONE DURING THE DAY.IV ACCESS ON LT AC AND ON VANCOMYCIN.FALL PRECAUTION IN PLACE.WILL CONTINUE TO MONITOR PER POC
[2020-04-30 05:58] LABS: HEMATOCRIT 29.5 % (42.0-52.0); MCH 28.6 pg (26.0-34.0); MCHC 33.1 g/dL (28.0-37.0); RBC 3.42 mil/uL (4.50-6.00); RDW 15.9 % (10.5-14.5); WBC 5.4 thou/uL (4.0-11.0)
[2020-04-30 06:05] LABS: HEMOGLOBIN 9.8 gm/dL (14.0-18.0); MCV 86.3 fL (80.0-100.0)
[2020-04-30 06:45] LABS: CALCIUM 8.5 mg/dL (8.5-10.1); MAGNESIUM 1.9 mg/dL (1.8-2.4); POTASSIUM 4.2 mmol/L (3.5-5.1)
[2020-04-30 06:47] LABS: CREATININE 1.5 mg/dL (0.7-1.3)
[2020-04-30 07:35] VITALS: BP 98/57
--- NOTE | 2020-04-30 12:07 | NUR ---
ORDERS RECEIVED FOR PT EVAL AND TREAT. PER OT, Pt STATED HE IS AT BASELINE AND DOES NOT WANT PT/OT. Pt IS PARAPLEGIC AND USES W/C. ACUTE PT TO SIGN OFF D/T Pt REFUSAL. IF MOBILITY, STRENGTH, BALANCE, OR ENDURANCE DECLINES, PLEASE CONSIDER RECONSULTING PT SERVICES.
[2020-04-30 12:47] VITALS: BP 93/49
--- NOTE | 2020-04-30 14:19 | NUR ---
ASSUMED PT CARE THIS AM. PT BP LOW, MADE AWARE AND FLUIDS ORDERED. PT REPORTS THAT IS A NORMAL BP FOR HIM, HOWEVER. PAIN MANAGED WELL WITH MEDS GIVEN. PT MAKING INAPROPRIATE COMMENTS TO STAFF WHEN INTERACTING THIS MORNING, BUT BEHAVIOR HAS SINCE IMPROVED. PT HAD A MEDIUM BM THIS AM THAT WAS SOFT AND LIGHT BROWN. SUPRAPUBIC CATHETER IS PATENT. PT ABLE TO TURN SELF, HOWEVER REPORTS THAT HE DOES NOT WANT TO TURN Q2H. PT EDUCATED ON IMPORTANCE OF TURNS, BUT CONTINUES TO REFUSE. IV PATENT, FLUIDS INFUSING. WOUNDS DRESSED AND PICTURES TAKEN THIS AM BY NIGHT NURSE. PT EATING WELL, CALLS WHEN APPROPRIATE.
--- NOTE | 2020-04-30 14:31 | NUR ---
PT ADMITTED RELATED TO BLE WOUNDS, CELLULITIS, FAILED OUTPATIENT TREATMENT. CM MET WITH PT AT BEDSIDE THIS DAY. PT APPEARED TO BE A&O X4. CM ROLE INTRODUCED. PT INDICATED HE IS PARAPLEGIC. HE STATED THAT HE RESIDES ALONE IN A HOUSE WITH A RAMP TO ENTER AND NO STEPS INSIDE. PT INDICATED HE HAS A MANUAL WC, BSC, FWW. PT INDICATED HE HAD BEEN ABLE TO USE A FWW TO DO A STAND PIVOT TRANSFER PSYCHOLOGIST RESEARCH ASSISTANT. PT INDICATED HE HAD BEEN INDEPENDENT WITH ADLS PSYCHOLOGIST RESEARCH ASSISTANT. PT HAD BEEN ON SERVICE WITH [facility] HEALTH PSYCHOLOGIST RESEARCH ASSISTANT. HE ANTICIPATES RETURNING HOME AND RESUMING SERVICES WITH [facility] ONCE MEDICALLY STABLE. PT TO HAVE ANGIOGRAM TOMORROW, PT IS ON IV VANC, ANTICPATE DEBRIDEMENT TUESDAY. CM TO FOLLOW INDICATED WITH DC PLANNING.
--- NOTE | 2020-04-30 15:07 | NUR ---
Nutrition: Pt assessed due to BLE wounds with plan for revascularization and likely debridement. PMH/labs/meds reviewed. ?DM2 per H&P however pt reports no DM hx and no accuchecks being taken or DM meds ordered. Eating well 90% of meals on heart healthy diet. Pt is requesting regular diet. Does have hx of HTN, cardiac arrest and MICHELINE however. Paraplegic, Stable weights. Understands need for high protein diet for wound healing and drink Premier protein at home Will offer Ensure max once daily. Otherwise consider low nutrition risk.
[2020-04-30 15:20] VITALS: BP 114/63
[2020-04-30 17:16] VITALS: BP 139/64
[2020-04-30 19:50] VITALS: BP 101/51
[2020-05-01 05:37] LABS: ALBUMIN 2.6 g/dL (3.4-5.0); CREATININE 1.5 mg/dL (0.7-1.3); PHOSPHORUS 2.6 mg/dL (2.5-4.9); POTASSIUM 4.5 mmol/L (3.5-5.1)
--- NOTE | 2020-05-01 07:41 | NUR ---
VSS-AFEBRILE. LUNGS CLEAR-ROOM AIR. NPO AFTER MIDNIGHT. PAIN WELL CONTROLLED WITH IV AND PO MEDICATIONS. FALL PRECAUTIONS IN PLACE, CALLS APPROPRIATELY FOR ANY NEEDED ASSISTANCE.
--- NOTE | 2020-05-01 12:02 | NUR ---
PT TO HAVE ANGIOGRAM THIS DAY. ANTICIPATE I&D TOMORROW. PT CONTINUES ON IV VANC. PT HAD REFUSED PT AND OT EVALS INDICATING THAT HE IS AT BASELINE FOR MOBILITY AND ADLS. CARE TEAM INDICATED THAT PT WILL LIKELY BE HERE OVER THE WEEKEND. PROBABLE DC BEGINING OF NEXT WEEK. CM FOLLOWING REGARDING DC PLANNING.
[2020-05-01 18:29] VITALS: BP 96/45
[2020-05-01 18:30] VITALS: BP 101/44
[2020-05-01 19:39] VITALS: BP 108/52
--- NOTE | 2020-05-01 20:20 | NUR ---
PT A&OX4, VSS, PAIN IN BACK. PAIN MEDICATION GIVEN AND ANTIDIARRHEAL. PATIENT HAD ONE LOOSE STOOL TODAY. IV AND MARX PATENT. ANGIOGRAM RESCHEDULED FOR 05/02. NO SIGNS OF DISTRESS. WILL CONTINUE TO MONITOR.
[2020-05-02] VITALS (11 sets, daily range): BP systolic 114–143; BP diastolic 53–75
--- NOTE | 2020-05-02 04:56 | NUR ---
Assumed care @ 20:00, requests antidiarrheal and pain meds as often as ordered PRN. A&Ox4. Has a dark, paranoid sense of humor. When water cup was removed for NPO to prepare for procedure, stated, you dont trust me or you wouldnt remove my cup of water. Assured that removing beverages from bedside is standard care for NPO order, and he made no response. Will monitor as per unit protocol for safety and comfort.
[2020-05-02 06:02] LABS: ALBUMIN 2.7 g/dL (3.4-5.0); CALCIUM 8.4 mg/dL (8.5-10.1); CREATININE 1.3 mg/dL (0.7-1.3); PHOSPHORUS 2.8 mg/dL (2.5-4.9); POTASSIUM 5.1 mmol/L (3.5-5.1)
[2020-05-02 07:55] LABS: HEMATOCRIT 31.1 % (42.0-52.0); HEMOGLOBIN 10.1 gm/dL (14.0-18.0); MCH 32.7 pg (26.0-34.0); MCHC 32.6 g/dL (28.0-37.0); RBC 3.09 mil/uL (4.50-6.00); RDW 14.3 % (10.5-14.5); WBC 8.1 thou/uL (4.0-11.0)
[2020-05-02 08:05] LABS: MCV 100.5 fL (80.0-100.0)
--- NOTE | 2020-05-02 10:43 | NUR ---
ORDERS AGAIN RECEIVED FOR EVAL AND TREAT HOWEVER AFTER SPEAKING WITH Pt, HE HAS DECIDED TO DECLINE AN EVAL AGAIN. STATES HE DOES NOT NEED AN EVAL BECAUSE WE CAN'T RECREATE HIS SETUP THAT HE HAS AT HOME. TOLD Pt TO ASK FOR ORDERS AGAIN IF HE FEELS HE IS GETTING TOO WEAK IN THE HOSPITAL AND WANTS TO BE EVALUATED
--- NOTE | 2020-05-02 13:25 | NUR ---
PT IS TO HAVE AN ANGIOGRAM AND AN I&D TODAY. PT CONTINUED ON IV VANC. CARE TEAM INDICATED THAT PT WILL LIKELY BE TRANSFERED TO POST PROCEDURE. PT HAS INDICATED THAT HE PLANS TO RETURN HOME ONCE MEDICALLY STABLE. HE HAD BEEN ON SERVICE WITH [facility] ENERGY EFFICIENCY ENGINEER AND HE WASNT TO RESUME SERVICES WITH THEM UPON DC. CLINICAL UPDATE FAXED THIS DAY. CARE TEAM INDICIATED WITH PT WILL LIKELY BE HERE OVER THE WEEKEND. SHOULD PT BE MEDICALLY STABLE TO DC HOME WITH RESUMPTION OF SERVICES OVER THE WEEKEND. CONTACT [facility] AND FAX ORDERS TO THE FOLLOWING NUMBER. P: F: . PT HAS HIS OWN WC HERE. CM TO FOLLOW INDICATED WITH DC PLANNING.
--- NOTE | 2020-05-02 13:45 | NUR ---
PT IS TO HAVE AN ANGIOGRAM AND AN I&D TODAY. PT CONTINUED ON IV VANC. CARE TEAM INDICATED THAT PT WILL LIKELY BE TRANSFERED TO POST PROCEDURE. PT HAS INDICATED THAT HE PLANS TO RETURN HOME ONCE MEDICALLY STABLE. HE HAD BEEN ON SERVICE WITH [facility] TRUST ACCOUNTS SUPERVISOR AND HE WASNT TO RESUME SERVICES WITH THEM UPON DC. CLINICAL UPDATE FAXED THIS DAY. CARE TEAM INDICIATED WITH PT WILL LIKELY BE HERE OVER THE WEEKEND. SHOULD PT BE MEDICALLY STABLE TO DC HOME WITH RESUMPTION OF SERVICES OVER THE WEEKEND. CONTACT [facility] AND FAX ORDERS TO THE FOLLOWING NUMBER. P: F: . PT HAS HIS OWN WC HERE. CM TO FOLLOW INDICATED WITH DC PLANNING.
--- NOTE | 2020-05-02 21:39 | NUR ---
PT. ARRIVED AT THE FLOOR AT 1800; PT. AOX4; R. GROIN SIDE DRESSING C/D/I; NO HEMATOMA; VS WNL; REQUESTED PRN PAIN MEDICATION; PRN PAIN MEDICATION GIVEN; POST CATH VITAL SIGNS CHARTED; DIET CHANGED; UPSET BECAUSE DR. FARRIS TOLD PT. WILL BE D/C AFTER PROCEDURE; EDUCATED ABOUT D/C PROCESS; EDUCATED ABOUT HOSPITALIST WRITE D/C ORDERS; ST. UNDERSTANDING; ASSESSMENT CHARGED; FOLLOWING POC; PASSED ON REPORT;
[2020-05-03 05:03] LABS: CALCIUM 8.3 mg/dL (8.5-10.1); CREATININE 1.3 mg/dL (0.7-1.3); POTASSIUM 5.5 mmol/L (3.5-5.1)
[2020-05-03 05:12] VITALS: BP 102/54
[2020-05-03 07:30] VITALS: BP 112/55
--- NOTE | 2020-05-03 08:20 | NUR ---
PT WAS ONB BEDREST AT THE BEGINNING OF THE SHIFT S/P STENTS IN THE LE. ALERT AND ORIENTED. RIGHT GROIN SITE C/D/I NO HEMATOMA. PT WOULD LIKE TO BE DISCHARGED TODAY. NO C/O CHEST PAIN, NAUSEA OR VOMITING. WILL CONTINUE TO MONITOR AND FOLLOW POC.
[2020-05-03 09:26] VITALS: BP 112/55
[2020-05-03] MEDS ORDERED: ASPIR 8181 MG PO (10:39)
[2020-05-03] MEDS ORDERED: BACTRIM DS TAB1 EAC1 PO (10:39)
[2020-05-03] MEDS ORDERED: OXYCODONE HCL 55 MG PO (10:39)
[2020-05-03] MEDS ORDERED: CEFUROXIME500 MG PO (10:39)
--- NOTE | 2020-05-03 12:06 | NUR ---
ASSUMMED PT CARE AT APPROXIMATELY 0700. PT A&O X4. ASSESSMENT CHARTED. FALL PRECAUTIONS IN PLACE. PT DENIES HAVING CHEST PAIN. PT DENIES HAVING SOB. PT STATED HE HAD PAIN. PT RECEIVED ANALGESICS. PT STATED ANALGESICS HELPED RELIEVE PAIN. PT DISCHARGING HOME C HOME HEALTH. PT RECEIVED DISCHARGE EDUCATION. PT STATED UNDERSTANDING AND DENIED HAVING FURTHER QUESTIONS. R GROIN C/D/I. NO HEMATOMA. IV DC. TELE DC. PT SENT HOME C HOME MEDICATIONS. MEDICAL TRANSPORT ARRIVED AND TOOK PT OFF UNIT. PT COMFORTABLE. PT DENIES HAVING FURTHER CONCERNS. VITAL SIGNS STABLE.
== END 2020-05-03 12:13 | disposition home health service (06) | DRG 853 ==
LOC: ER 13:03 → 4W 16:32 → EROBS 16:32 → 4W 23:12 → 2N 05-02 17:00
PROVIDERS: Hospitalist; Nurse Practitioner; Physician Assistant; ADMIT Internal Medicine; ATTEND Internal Medicine
PROC: 04CS3ZZ Extirpation of Matter from Left Posterior Tibial Artery, Percutaneous Approach (ICD-10-PCS; principal; 2020-04-29)
PROC: B4181ZZ Fluoroscopy of Bilateral Renal Arteries using Low Osmolar Contrast (ICD-10-PCS; principal; 2020-04-29)
PROC: 047E3DZ Dilation of Right Internal Iliac Artery with Intraluminal Device, Percutaneous Approach (ICD-10-PCS; principal; 2020-04-29)
PROC: B41D1ZZ Fluoroscopy of Aorta and Bilateral Lower Extremity Arteries using Low Osmolar Contrast (ICD-10-PCS; principal; 2020-04-29)
PROC: 047S3ZZ Dilation of Left Posterior Tibial Artery, Percutaneous Approach (ICD-10-PCS; principal; 2020-04-29)
PROC: 047D3DZ Dilation of Left Common Iliac Artery with Intraluminal Device, Percutaneous Approach (ICD-10-PCS; principal; 2020-04-29)
PROC: 047C3DZ Dilation of Right Common Iliac Artery with Intraluminal Device, Percutaneous Approach (ICD-10-PCS; principal; 2020-04-29)
DX: A41.9 Sepsis, unspecified organism (principal); N17.0 Acute kidney failure with tubular necrosis; E43 Unspecified severe protein-calorie malnutrition; N39.0 Urinary tract infection, site not specified; G82.20 Paraplegia, unspecified; I48.21 Permanent atrial fibrillation; L03.116 Cellulitis of left lower limb; L03.115 Cellulitis of right lower limb; L97.829 Non-pressure chronic ulcer of other part of left lower leg with unspecified severity; L97.819 Non-pressure chronic ulcer of other part of right lower leg with unspecified severity; Z20.828 Contact with and (suspected) exposure to other viral communicable diseases; I12.9 Hypertensive chronic kidney disease with stage 1 through stage 4 chronic kidney disease, or unspecified chronic kidney disease; S81.802A Unspecified open wound, left lower leg, initial encounter; E11.22 Type 2 diabetes mellitus with diabetic chronic kidney disease; S81.801A Unspecified open wound, right lower leg, initial encounter; E78.5 Hyperlipidemia, unspecified; I95.9 Hypotension, unspecified; N18.9 Chronic kidney disease, unspecified; F17.210 Nicotine dependence, cigarettes, uncomplicated; E11.622 Type 2 diabetes mellitus with other skin ulcer; E11.51 Type 2 diabetes mellitus with diabetic peripheral angiopathy without gangrene; D64.9 Anemia, unspecified; Z79.82 Long term (current) use of aspirin; Z79.01 Long term (current) use of anticoagulants; Z93.1 Gastrostomy status; Z93.0 Tracheostomy status; Z79.899 Other long term (current) drug therapy; X58.XXXA Exposure to other specified factors, initial encounter; Y93.89 Activity, other specified; Y92.89 Other specified places as the place of occurrence of the external cause; Y99.8 Other external cause status
CPT/HCPCS: 10040; 10045; 10194; 62110; 62900; 70005

== ENCOUNTER → 2020-05-15 | Outpatient (CLI) | payer OTHER ==
[~2020-05-15] MED LIST changes: +ASPIR 8181 MG PO; +BACTRIM DS TAB1 EAC1 PO; +CEFUROXIME500 MG PO; +OXYCODONE HCL 55 MG PO; +TOPROL XL100 MG PO
== END ==
LOC: HYPER 13:48
PROVIDERS: ATTEND Emergency Medicine
DX: I70.233 Atherosclerosis of native arteries of right leg with ulceration of ankle (principal); L89.514 Pressure ulcer of right ankle, stage 4; L97.315 Non-pressure chronic ulcer of right ankle with muscle involvement without evidence of necrosis; I70.243 Atherosclerosis of native arteries of left leg with ulceration of ankle; L89.523 Pressure ulcer of left ankle, stage 3; L97.322 Non-pressure chronic ulcer of left ankle with fat layer exposed; L97.312 Non-pressure chronic ulcer of right ankle with fat layer exposed; I70.234 Atherosclerosis of native arteries of right leg with ulceration of heel and midfoot; L89.613 Pressure ulcer of right heel, stage 3; L97.411 Non-pressure chronic ulcer of right heel and midfoot limited to breakdown of skin; I70.248 Atherosclerosis of native arteries of left leg with ulceration of other part of lower leg; L89.893 Pressure ulcer of other site, stage 3; L97.822 Non-pressure chronic ulcer of other part of left lower leg with fat layer exposed; I70.238 Atherosclerosis of native arteries of right leg with ulceration of other part of lower leg; L97.812 Non-pressure chronic ulcer of other part of right lower leg with fat layer exposed; I70.244 Atherosclerosis of native arteries of left leg with ulceration of heel and midfoot; L89.623 Pressure ulcer of left heel, stage 3; L97.421 Non-pressure chronic ulcer of left heel and midfoot limited to breakdown of skin; I70.235 Atherosclerosis of native arteries of right leg with ulceration of other part of foot; L97.511 Non-pressure chronic ulcer of other part of right foot limited to breakdown of skin; I70.245 Atherosclerosis of native arteries of left leg with ulceration of other part of foot; L97.521 Non-pressure chronic ulcer of other part of left foot limited to breakdown of skin; I87.2 Venous insufficiency (chronic) (peripheral); G82.20 Paraplegia, unspecified; G89.4 Chronic pain syndrome; I12.9 Hypertensive chronic kidney disease with stage 1 through stage 4 chronic kidney disease, or unspecified chronic kidney disease; N18.9 Chronic kidney disease, unspecified; R60.0 Localized edema; G90.09 Other idiopathic peripheral autonomic neuropathy; F17.290 Nicotine dependence, other tobacco product, uncomplicated; I48.91 Unspecified atrial fibrillation; G47.30 Sleep apnea, unspecified; Z79.01 Long term (current) use of anticoagulants

== ENCOUNTER → 2020-05-30 | Outpatient (CLI) | payer OTHER | LOC: HYPER 09:04 | PROVIDERS: ATTEND Emergency Medicine Emergency Medical Services | DX: I70.238 Atherosclerosis of native arteries of right leg with ulceration of other part of lower leg (principal); L89.894 Pressure ulcer of other site, stage 4; L97.815 Non-pressure chronic ulcer of other part of right lower leg with muscle involvement without evidence of necrosis; I70.232 Atherosclerosis of native arteries of right leg with ulceration of calf; L89.893 Pressure ulcer of other site, stage 3; L97.211 Non-pressure chronic ulcer of right calf limited to breakdown of skin; L97.222 Non-pressure chronic ulcer of left calf with fat layer exposed; I70.235 Atherosclerosis of native arteries of right leg with ulceration of other part of foot; L97.512 Non-pressure chronic ulcer of other part of right foot with fat layer exposed; L89.613 Pressure ulcer of right heel, stage 3; L89.323 Pressure ulcer of left buttock, stage 3; I70.234 Atherosclerosis of native arteries of right leg with ulceration of heel and midfoot; L97.411 Non-pressure chronic ulcer of right heel and midfoot limited to breakdown of skin; L89.623 Pressure ulcer of left heel, stage 3; L97.822 Non-pressure chronic ulcer of other part of left lower leg with fat layer exposed; I87.2 Venous insufficiency (chronic) (peripheral); R60.0 Localized edema; G90.09 Other idiopathic peripheral autonomic neuropathy; I12.9 Hypertensive chronic kidney disease with stage 1 through stage 4 chronic kidney disease, or unspecified chronic kidney disease; N18.9 Chronic kidney disease, unspecified; I48.91 Unspecified atrial fibrillation; L84 Corns and callosities; I10 Essential (primary) hypertension; G82.20 Paraplegia, unspecified; G89.4 Chronic pain syndrome; G47.30 Sleep apnea, unspecified; F17.290 Nicotine dependence, other tobacco product, uncomplicated; Z79.01 Long term (current) use of anticoagulants ==

== ENCOUNTER → 2020-11-04 | Outpatient (CLI) | payer OTHER | LOC: SJCVCIMAG 08:49 | PROVIDERS: ATTEND Internal Medicine Cardiovascular Disease | DX: R94.31 Abnormal electrocardiogram [ECG] [EKG] (principal); I49.9 Cardiac arrhythmia, unspecified; I82.621 Acute embolism and thrombosis of deep veins of right upper extremity; E78.00 Pure hypercholesterolemia, unspecified; I10 Essential (primary) hypertension; I73.9 Peripheral vascular disease, unspecified; I65.23 Occlusion and stenosis of bilateral carotid arteries; I49.3 Ventricular premature depolarization; F17.200 Nicotine dependence, unspecified, uncomplicated; Z98.890 Other specified postprocedural states; Z88.8 Allergy status to other drugs, medicaments and biological substances; Z79.899 Other long term (current) drug therapy ==

== ENCOUNTER → 2020-11-04 | Outpatient (CLI) | payer OTHER | LOC: HYPER 08:54 | PROVIDERS: ATTEND Emergency Medicine | DX: I70.242 Atherosclerosis of native arteries of left leg with ulceration of calf (principal); L97.221 Non-pressure chronic ulcer of left calf limited to breakdown of skin; I70.238 Atherosclerosis of native arteries of right leg with ulceration of other part of lower leg; L97.812 Non-pressure chronic ulcer of other part of right lower leg with fat layer exposed; I70.233 Atherosclerosis of native arteries of right leg with ulceration of ankle; L97.312 Non-pressure chronic ulcer of right ankle with fat layer exposed; I70.248 Atherosclerosis of native arteries of left leg with ulceration of other part of lower leg; L97.822 Non-pressure chronic ulcer of other part of left lower leg with fat layer exposed; L89.623 Pressure ulcer of left heel, stage 3; L89.613 Pressure ulcer of right heel, stage 3; L89.324 Pressure ulcer of left buttock, stage 4; I48.91 Unspecified atrial fibrillation; I10 Essential (primary) hypertension; G89.4 Chronic pain syndrome; G82.20 Paraplegia, unspecified; G62.9 Polyneuropathy, unspecified; G47.30 Sleep apnea, unspecified; K21.9 Gastro-esophageal reflux disease without esophagitis; F17.200 Nicotine dependence, unspecified, uncomplicated ==

== ENCOUNTER → 2020-11-27 | Outpatient (CLI) | payer OTHER | LOC: HYPER 09:16 | PROVIDERS: ATTEND Emergency Medicine Emergency Medical Services | DX: I70.242 Atherosclerosis of native arteries of left leg with ulceration of calf (principal); L97.221 Non-pressure chronic ulcer of left calf limited to breakdown of skin; I70.238 Atherosclerosis of native arteries of right leg with ulceration of other part of lower leg; L97.812 Non-pressure chronic ulcer of other part of right lower leg with fat layer exposed; I70.233 Atherosclerosis of native arteries of right leg with ulceration of ankle; L97.312 Non-pressure chronic ulcer of right ankle with fat layer exposed; I70.248 Atherosclerosis of native arteries of left leg with ulceration of other part of lower leg; L97.822 Non-pressure chronic ulcer of other part of left lower leg with fat layer exposed; L89.623 Pressure ulcer of left heel, stage 3; L89.613 Pressure ulcer of right heel, stage 3; L89.324 Pressure ulcer of left buttock, stage 4; E66.01 Morbid (severe) obesity due to excess calories; I48.91 Unspecified atrial fibrillation; I10 Essential (primary) hypertension; G89.4 Chronic pain syndrome; G82.20 Paraplegia, unspecified; G62.9 Polyneuropathy, unspecified; G47.30 Sleep apnea, unspecified; K21.9 Gastro-esophageal reflux disease without esophagitis; F17.200 Nicotine dependence, unspecified, uncomplicated; Z79.01 Long term (current) use of anticoagulants; Z68.31 Body mass index [BMI] 31.0-31.9, adult ==

== ENCOUNTER → 2020-12-17 | Outpatient (CLI) | payer OTHER | LOC: HYPER 08:16 | PROVIDERS: ATTEND Emergency Medicine | DX: I70.242 Atherosclerosis of native arteries of left leg with ulceration of calf (principal); L97.222 Non-pressure chronic ulcer of left calf with fat layer exposed; I70.238 Atherosclerosis of native arteries of right leg with ulceration of other part of lower leg; L97.812 Non-pressure chronic ulcer of other part of right lower leg with fat layer exposed; I70.233 Atherosclerosis of native arteries of right leg with ulceration of ankle; L97.312 Non-pressure chronic ulcer of right ankle with fat layer exposed; I70.248 Atherosclerosis of native arteries of left leg with ulceration of other part of lower leg; L97.822 Non-pressure chronic ulcer of other part of left lower leg with fat layer exposed; L89.623 Pressure ulcer of left heel, stage 3; L89.613 Pressure ulcer of right heel, stage 3; L89.324 Pressure ulcer of left buttock, stage 4; E66.01 Morbid (severe) obesity due to excess calories; I48.91 Unspecified atrial fibrillation; I10 Essential (primary) hypertension; G89.4 Chronic pain syndrome; G82.20 Paraplegia, unspecified; G62.9 Polyneuropathy, unspecified; G47.30 Sleep apnea, unspecified; K21.9 Gastro-esophageal reflux disease without esophagitis; F17.200 Nicotine dependence, unspecified, uncomplicated; Z79.01 Long term (current) use of anticoagulants; Z68.31 Body mass index [BMI] 31.0-31.9, adult ==

== ENCOUNTER → 2021-01-27 | Outpatient (CLI) | payer OTHER | LOC: HYPER 08:27 | PROVIDERS: ATTEND Emergency Medicine | DX: I70.242 Atherosclerosis of native arteries of left leg with ulceration of calf (principal); L97.222 Non-pressure chronic ulcer of left calf with fat layer exposed; I70.232 Atherosclerosis of native arteries of right leg with ulceration of calf; L97.212 Non-pressure chronic ulcer of right calf with fat layer exposed; I70.238 Atherosclerosis of native arteries of right leg with ulceration of other part of lower leg; L97.812 Non-pressure chronic ulcer of other part of right lower leg with fat layer exposed; I70.248 Atherosclerosis of native arteries of left leg with ulceration of other part of lower leg; L97.822 Non-pressure chronic ulcer of other part of left lower leg with fat layer exposed; I70.235 Atherosclerosis of native arteries of right leg with ulceration of other part of foot; L97.512 Non-pressure chronic ulcer of other part of right foot with fat layer exposed; L89.623 Pressure ulcer of left heel, stage 3; L89.613 Pressure ulcer of right heel, stage 3; L89.324 Pressure ulcer of left buttock, stage 4; E66.01 Morbid (severe) obesity due to excess calories; I48.91 Unspecified atrial fibrillation; I10 Essential (primary) hypertension; G89.4 Chronic pain syndrome; G82.20 Paraplegia, unspecified; G62.9 Polyneuropathy, unspecified; G47.30 Sleep apnea, unspecified; N18.9 Chronic kidney disease, unspecified; I87.2 Venous insufficiency (chronic) (peripheral); K21.9 Gastro-esophageal reflux disease without esophagitis; F17.200 Nicotine dependence, unspecified, uncomplicated; Z79.01 Long term (current) use of anticoagulants; Z68.31 Body mass index [BMI] 31.0-31.9, adult ==

== ENCOUNTER → 2021-02-17 | Outpatient (CLI) | payer OTHER | LOC: HYPER 08:13 | PROVIDERS: ATTEND Emergency Medicine | DX: I70.242 Atherosclerosis of native arteries of left leg with ulceration of calf (principal); L97.222 Non-pressure chronic ulcer of left calf with fat layer exposed; I70.232 Atherosclerosis of native arteries of right leg with ulceration of calf; L97.212 Non-pressure chronic ulcer of right calf with fat layer exposed; I70.238 Atherosclerosis of native arteries of right leg with ulceration of other part of lower leg; L97.812 Non-pressure chronic ulcer of other part of right lower leg with fat layer exposed; I70.248 Atherosclerosis of native arteries of left leg with ulceration of other part of lower leg; L97.822 Non-pressure chronic ulcer of other part of left lower leg with fat layer exposed; I70.235 Atherosclerosis of native arteries of right leg with ulceration of other part of foot; L97.512 Non-pressure chronic ulcer of other part of right foot with fat layer exposed; L89.623 Pressure ulcer of left heel, stage 3; L89.613 Pressure ulcer of right heel, stage 3; L89.324 Pressure ulcer of left buttock, stage 4; E66.01 Morbid (severe) obesity due to excess calories; I48.91 Unspecified atrial fibrillation; G89.4 Chronic pain syndrome; G82.20 Paraplegia, unspecified; G62.9 Polyneuropathy, unspecified; G47.30 Sleep apnea, unspecified; I12.9 Hypertensive chronic kidney disease with stage 1 through stage 4 chronic kidney disease, or unspecified chronic kidney disease; N18.9 Chronic kidney disease, unspecified; I87.2 Venous insufficiency (chronic) (peripheral); K21.9 Gastro-esophageal reflux disease without esophagitis; F17.200 Nicotine dependence, unspecified, uncomplicated; Z79.01 Long term (current) use of anticoagulants; Z68.31 Body mass index [BMI] 31.0-31.9, adult ==

== ENCOUNTER → 2021-03-10 | Outpatient (CLI) | payer OTHER | LOC: HYPER 08:43 | PROVIDERS: ATTEND Emergency Medicine | DX: I70.242 Atherosclerosis of native arteries of left leg with ulceration of calf (principal); L97.222 Non-pressure chronic ulcer of left calf with fat layer exposed; I70.232 Atherosclerosis of native arteries of right leg with ulceration of calf; L97.212 Non-pressure chronic ulcer of right calf with fat layer exposed; I70.238 Atherosclerosis of native arteries of right leg with ulceration of other part of lower leg; L97.812 Non-pressure chronic ulcer of other part of right lower leg with fat layer exposed; I70.248 Atherosclerosis of native arteries of left leg with ulceration of other part of lower leg; L97.822 Non-pressure chronic ulcer of other part of left lower leg with fat layer exposed; I70.235 Atherosclerosis of native arteries of right leg with ulceration of other part of foot; L97.512 Non-pressure chronic ulcer of other part of right foot with fat layer exposed; L89.623 Pressure ulcer of left heel, stage 3; L89.613 Pressure ulcer of right heel, stage 3; L89.324 Pressure ulcer of left buttock, stage 4; L84 Corns and callosities; E66.01 Morbid (severe) obesity due to excess calories; I48.91 Unspecified atrial fibrillation; G89.4 Chronic pain syndrome; G82.20 Paraplegia, unspecified; G62.9 Polyneuropathy, unspecified; G47.30 Sleep apnea, unspecified; I12.9 Hypertensive chronic kidney disease with stage 1 through stage 4 chronic kidney disease, or unspecified chronic kidney disease; N18.9 Chronic kidney disease, unspecified; I87.2 Venous insufficiency (chronic) (peripheral); K21.9 Gastro-esophageal reflux disease without esophagitis; F17.200 Nicotine dependence, unspecified, uncomplicated; Z79.01 Long term (current) use of anticoagulants; Z68.31 Body mass index [BMI] 31.0-31.9, adult ==

== ENCOUNTER → 2021-03-24 | Outpatient (CLI) | payer OTHER | LOC: HYPER 07:48 | PROVIDERS: ATTEND Emergency Medicine | DX: I70.242 Atherosclerosis of native arteries of left leg with ulceration of calf (principal); L97.222 Non-pressure chronic ulcer of left calf with fat layer exposed; I70.232 Atherosclerosis of native arteries of right leg with ulceration of calf; L97.212 Non-pressure chronic ulcer of right calf with fat layer exposed; I70.238 Atherosclerosis of native arteries of right leg with ulceration of other part of lower leg; L97.812 Non-pressure chronic ulcer of other part of right lower leg with fat layer exposed; I70.248 Atherosclerosis of native arteries of left leg with ulceration of other part of lower leg; L97.822 Non-pressure chronic ulcer of other part of left lower leg with fat layer exposed; I70.235 Atherosclerosis of native arteries of right leg with ulceration of other part of foot; L97.512 Non-pressure chronic ulcer of other part of right foot with fat layer exposed; L89.623 Pressure ulcer of left heel, stage 3; L89.613 Pressure ulcer of right heel, stage 3; L89.324 Pressure ulcer of left buttock, stage 4; L84 Corns and callosities; G90.09 Other idiopathic peripheral autonomic neuropathy; E66.01 Morbid (severe) obesity due to excess calories; I48.91 Unspecified atrial fibrillation; G89.4 Chronic pain syndrome; G82.20 Paraplegia, unspecified; G62.9 Polyneuropathy, unspecified; G47.30 Sleep apnea, unspecified; I12.9 Hypertensive chronic kidney disease with stage 1 through stage 4 chronic kidney disease, or unspecified chronic kidney disease; N18.9 Chronic kidney disease, unspecified; I87.2 Venous insufficiency (chronic) (peripheral); K21.9 Gastro-esophageal reflux disease without esophagitis; F17.200 Nicotine dependence, unspecified, uncomplicated; Z79.01 Long term (current) use of anticoagulants; Z68.31 Body mass index [BMI] 31.0-31.9, adult ==

== ENCOUNTER → 2021-03-31 | Outpatient (CLI) | payer OTHER | LOC: HYPER 09:37 | PROVIDERS: ATTEND Emergency Medicine | DX: I70.242 Atherosclerosis of native arteries of left leg with ulceration of calf (principal); L97.222 Non-pressure chronic ulcer of left calf with fat layer exposed; I70.232 Atherosclerosis of native arteries of right leg with ulceration of calf; L97.212 Non-pressure chronic ulcer of right calf with fat layer exposed; I70.238 Atherosclerosis of native arteries of right leg with ulceration of other part of lower leg; L97.812 Non-pressure chronic ulcer of other part of right lower leg with fat layer exposed; I70.248 Atherosclerosis of native arteries of left leg with ulceration of other part of lower leg; L97.822 Non-pressure chronic ulcer of other part of left lower leg with fat layer exposed; I70.235 Atherosclerosis of native arteries of right leg with ulceration of other part of foot; L97.512 Non-pressure chronic ulcer of other part of right foot with fat layer exposed; L89.623 Pressure ulcer of left heel, stage 3; L89.613 Pressure ulcer of right heel, stage 3; L89.324 Pressure ulcer of left buttock, stage 4; L84 Corns and callosities; G90.09 Other idiopathic peripheral autonomic neuropathy; E66.01 Morbid (severe) obesity due to excess calories; I48.91 Unspecified atrial fibrillation; G89.4 Chronic pain syndrome; G82.20 Paraplegia, unspecified; G62.9 Polyneuropathy, unspecified; G47.30 Sleep apnea, unspecified; I12.9 Hypertensive chronic kidney disease with stage 1 through stage 4 chronic kidney disease, or unspecified chronic kidney disease; N18.9 Chronic kidney disease, unspecified; I87.2 Venous insufficiency (chronic) (peripheral); K21.9 Gastro-esophageal reflux disease without esophagitis; F17.200 Nicotine dependence, unspecified, uncomplicated; Z79.01 Long term (current) use of anticoagulants; Z68.31 Body mass index [BMI] 31.0-31.9, adult ==

== ENCOUNTER → 2021-04-09 | Outpatient (CLI) | payer OTHER | LOC: HYPER 09:48 | PROVIDERS: ATTEND Emergency Medicine | DX: L89.324 Pressure ulcer of left buttock, stage 4 (principal); L89.623 Pressure ulcer of left heel, stage 3; L97.822 Non-pressure chronic ulcer of other part of left lower leg with fat layer exposed; L97.812 Non-pressure chronic ulcer of other part of right lower leg with fat layer exposed; L89.613 Pressure ulcer of right heel, stage 3; I87.2 Venous insufficiency (chronic) (peripheral); I73.89 Other specified peripheral vascular diseases; G82.20 Paraplegia, unspecified; G89.4 Chronic pain syndrome; R60.0 Localized edema; I12.9 Hypertensive chronic kidney disease with stage 1 through stage 4 chronic kidney disease, or unspecified chronic kidney disease; N18.9 Chronic kidney disease, unspecified; I48.91 Unspecified atrial fibrillation; G47.30 Sleep apnea, unspecified; G90.09 Other idiopathic peripheral autonomic neuropathy; E66.9 Obesity, unspecified; F17.290 Nicotine dependence, other tobacco product, uncomplicated; Z79.01 Long term (current) use of anticoagulants; Z79.899 Other long term (current) drug therapy ==

== ENCOUNTER → 2021-04-09 | Outpatient (CLI) | payer OTHER | LOC: MRI 09:15 | PROVIDERS: ATTEND Emergency Medicine | DX: L89.623 Pressure ulcer of left heel, stage 3 (principal); M86.8X7 Other osteomyelitis, ankle and foot; M25.472 Effusion, left ankle; R60.0 Localized edema; M79.89 Other specified soft tissue disorders; M86.8X6 Other osteomyelitis, lower leg; M76.62 Achilles tendinitis, left leg; M25.48 Effusion, other site; I87.2 Venous insufficiency (chronic) (peripheral); I73.89 Other specified peripheral vascular diseases; G82.20 Paraplegia, unspecified ==

== ENCOUNTER → 2021-05-12 | Outpatient (CLI) | payer OTHER | LOC: HYPER 10:24 | PROVIDERS: ATTEND Emergency Medicine | DX: L89.324 Pressure ulcer of left buttock, stage 4 (principal); L89.623 Pressure ulcer of left heel, stage 3; L89.613 Pressure ulcer of right heel, stage 3; L97.822 Non-pressure chronic ulcer of other part of left lower leg with fat layer exposed; L97.812 Non-pressure chronic ulcer of other part of right lower leg with fat layer exposed; I87.2 Venous insufficiency (chronic) (peripheral); I73.89 Other specified peripheral vascular diseases; G82.20 Paraplegia, unspecified; G89.4 Chronic pain syndrome; R60.0 Localized edema; I12.9 Hypertensive chronic kidney disease with stage 1 through stage 4 chronic kidney disease, or unspecified chronic kidney disease; N18.9 Chronic kidney disease, unspecified; I48.91 Unspecified atrial fibrillation; G47.30 Sleep apnea, unspecified; G90.09 Other idiopathic peripheral autonomic neuropathy; E66.01 Morbid (severe) obesity due to excess calories; K21.9 Gastro-esophageal reflux disease without esophagitis; F17.290 Nicotine dependence, other tobacco product, uncomplicated; Z79.01 Long term (current) use of anticoagulants; Z68.31 Body mass index [BMI] 31.0-31.9, adult ==

== ENCOUNTER → 2021-05-21 | Outpatient (CLI) | payer OTHER | LOC: HYPER 09:40 | PROVIDERS: ATTEND Emergency Medicine | DX: T87.81 Dehiscence of amputation stump (principal); I70.232 Atherosclerosis of native arteries of right leg with ulceration of calf; L97.212 Non-pressure chronic ulcer of right calf with fat layer exposed; I70.234 Atherosclerosis of native arteries of right leg with ulceration of heel and midfoot; L89.620 Pressure ulcer of left heel, unstageable; L97.412 Non-pressure chronic ulcer of right heel and midfoot with fat layer exposed; L89.324 Pressure ulcer of left buttock, stage 4; L98.416 Non-pressure chronic ulcer of buttock with bone involvement without evidence of necrosis; L89.313 Pressure ulcer of right buttock, stage 3; I70.238 Atherosclerosis of native arteries of right leg with ulceration of other part of lower leg; L97.812 Non-pressure chronic ulcer of other part of right lower leg with fat layer exposed; L97.822 Non-pressure chronic ulcer of other part of left lower leg with fat layer exposed; L89.613 Pressure ulcer of right heel, stage 3; L89.623 Pressure ulcer of left heel, stage 3; I87.2 Venous insufficiency (chronic) (peripheral); G82.20 Paraplegia, unspecified; R21 Rash and other nonspecific skin eruption; G89.4 Chronic pain syndrome; R60.0 Localized edema; G90.09 Other idiopathic peripheral autonomic neuropathy; E66.9 Obesity, unspecified; G47.30 Sleep apnea, unspecified; G62.9 Polyneuropathy, unspecified; I12.9 Hypertensive chronic kidney disease with stage 1 through stage 4 chronic kidney disease, or unspecified chronic kidney disease; N18.9 Chronic kidney disease, unspecified; I48.91 Unspecified atrial fibrillation; F17.290 Nicotine dependence, other tobacco product, uncomplicated; Z68.31 Body mass index [BMI] 31.0-31.9, adult; Z79.899 Other long term (current) drug therapy; Z79.01 Long term (current) use of anticoagulants; Y83.5 Amputation of limb(s) as the cause of abnormal reaction of the patient, or of later complication, without mention of misadventure at the time of the procedure ==

== ENCOUNTER → 2021-05-28 | Outpatient (CLI) | payer OTHER | LOC: HYPER 13:58 | PROVIDERS: ATTEND Emergency Medicine | DX: I70.232 Atherosclerosis of native arteries of right leg with ulceration of calf (principal); L97.212 Non-pressure chronic ulcer of right calf with fat layer exposed; T87.89 Other complications of amputation stump; I70.234 Atherosclerosis of native arteries of right leg with ulceration of heel and midfoot; L89.613 Pressure ulcer of right heel, stage 3; L97.412 Non-pressure chronic ulcer of right heel and midfoot with fat layer exposed; L89.324 Pressure ulcer of left buttock, stage 4; L89.313 Pressure ulcer of right buttock, stage 3; I70.238 Atherosclerosis of native arteries of right leg with ulceration of other part of lower leg; L97.812 Non-pressure chronic ulcer of other part of right lower leg with fat layer exposed; L97.822 Non-pressure chronic ulcer of other part of left lower leg with fat layer exposed; I87.2 Venous insufficiency (chronic) (peripheral); R21 Rash and other nonspecific skin eruption; G82.20 Paraplegia, unspecified; G89.4 Chronic pain syndrome; R60.0 Localized edema; G90.09 Other idiopathic peripheral autonomic neuropathy; I12.9 Hypertensive chronic kidney disease with stage 1 through stage 4 chronic kidney disease, or unspecified chronic kidney disease; N18.9 Chronic kidney disease, unspecified; L89.623 Pressure ulcer of left heel, stage 3; I48.91 Unspecified atrial fibrillation; E66.9 Obesity, unspecified; G47.30 Sleep apnea, unspecified; F17.290 Nicotine dependence, other tobacco product, uncomplicated; Z68.31 Body mass index [BMI] 31.0-31.9, adult; Z79.01 Long term (current) use of anticoagulants; Z79.899 Other long term (current) drug therapy; Y83.5 Amputation of limb(s) as the cause of abnormal reaction of the patient, or of later complication, without mention of misadventure at the time of the procedure ==